=== PATIENT | male | born 1955 | race Caucasian/White ===

== ENCOUNTER → 2016-03-31 | Outpatient (CLI) | payer BC ==
[~2016-03-31] MED LIST: ASPIR-LOW81 MG PO; CHLORDIAZEPOXID25 MG PO; EXFORGE 10/31 TABLET PO; EXFORGE HCT 5-1 EACH PO; FISH OIL300 MG PO; FOLIC ACID1 MG PO; PRILOSEC OTC20 MG PO; PRILOSEC20 MG PO; VITAMIN B-1100 MG PO
[2016-03-31 09:04] LABS: HEMATOCRIT 39.2 % (38.0-50.0); MCH 29.5 PG (29.0-34.0); MCHC 33.7 G/DL (30.0-36.0); MCV 87.7 FL (86-99); MEAN PLAT.VOLUME 9.8 uM^3 (9.0-12.4); PLATELET COUNT 223 K/uL (156-360); RBC DIS.WIDTH-CV 12.6 % (11.8-14.6); RBC DIS.WIDTH-SD 39.4 % (39-53); RED BLOOD COUNT 4.47 M/uL (4.00-5.50); WHITE BLOOD COUNT 7.3 K/uL (4.1-10.2)
[2016-03-31 09:14] LABS: PTT 25.2 (25-32)
== END | disposition home or self-care (01) ==
LOC: RAD 03-24 09:00 → EDSTATUS 03-24 09:00 → OPR 03-24 09:00
PROVIDERS: Family Medicine
DX: D11.0 Benign neoplasm of parotid gland (principal); E04.1 Nontoxic single thyroid nodule; R22.0 Localized swelling, mass and lump, head
CPT/HCPCS: 76942; 85027; 85610; 85730; 88173; 88184 90; 88185 90; 88189 90; 88305

== ENCOUNTER → 2016-06-22 | Outpatient (CLI) | payer BC | END | disposition home or self-care (01) | LOC: CDC 11:16 | DX: R00.0 Tachycardia, unspecified (principal); I49.3 Ventricular premature depolarization; M25.511 Pain in right shoulder; M75.41 Impingement syndrome of right shoulder; M19.011 Primary osteoarthritis, right shoulder | CPT/HCPCS: 93000 ==